=== PATIENT | female | born 1990 | race Hispanic/Latino ===

== ENCOUNTER 2018-04-09 06:32 | Inpatient (IN) | payer SELFPAY ==
[2018-04-09] MEDS ORDERED: BUTORPHANOL 1 MG/ML INJ IV PRN (07:40)
[2018-04-09] MEDS ORDERED: METHYLERGONOVINE 0.2MG/ML AMP IM PRN (07:40)
[2018-04-09] MEDS ORDERED: Ringers Lactate 1,000 ML IV PRN (07:40)
[2018-04-09] MEDS ORDERED: LIDOCAINE 1% MPF 30 ML VIAL ONE (07:59)
[2018-04-09] MEDS ORDERED: CARBOPROST TROME 250 MCG/ML IM ONE (07:59)
[2018-04-09 08:00] LABS: RPR Titer ND
[2018-04-09] MEDS ORDERED: Ringers Lactate 1,000 ML IV SCH (08:00)
[2018-04-09] MEDS ORDERED: OXYTOCIN/LR 20 UNIT/1,000 ML BAG IV ONE (08:00)
[2018-04-09] MEDS ORDERED: METHYLERGONOVINE 0.2MG/ML AMP IM ONE (08:00)
[2018-04-09 08:08] LABS: Absolute Lymphocytes (CBC) 2.7 K/uL (0.7-4.9); Absolute Monocytes 0.8 K/uL (0.1-1.3); Absolute Neutrophil 7.5 K/uL (1.8-8.0); Basophils % 0.3 % (0-1.3); Eosinophils % 1.4 % (0-4.4); Hematocrit 34.6 % (36.0-45.0); MCH 30.9 pg (27.0-35.0); MCV 91.3 fL (80-100); MPV 9.6 fL (7.6-11.3); Monocytes % 6.8 % (3.3-12.3)
[2018-04-09 08:46] LABS: Anisocytosis 1+; Blood Morphology Comment NOT SEEN (NOT SEEN); Platelet Estimate ADEQ; Polychromasia SLIGHT; Urine White Blood Cell Casts OK
[2018-04-09] MEDS ORDERED: DOCUSATE NA/SENNA CONC 1 TAB PO PRN (09:52)
[2018-04-09] MEDS ORDERED: ACETAMINOPHEN 500 MG TAB PO PRN (09:52)
[2018-04-09] MEDS ORDERED: ONDANSETRON 4 MG (ODT) TAB PO PRN (09:52)
[2018-04-09] MEDS ORDERED: BISACODYL 10 MG RECTAL SUPP RECT PRN (09:52)
[2018-04-09] MEDS ORDERED: METHYLERGONOVINE 0.2 MG TAB PO PRN (09:52)
[2018-04-09] MEDS ORDERED: Tdap (Diph,Pertuss(Acell),Tet Vac) 0.5 ML SYR IMVAC ONE (09:52)
--- NOTE | 2018-04-09 09:56 | P.OP ---
Date of Service: 04/09/18 Findings and Operative Technique Patient delivered a viable female in cephalic presentation over a midline episiotomy on 04/09/18 at 09:25 AM. There was a cord around the body x1. Once was delivered nose and mouth were suctioned with a suction bulb and cord eas clamped and cut and infant was placed on mother's abdomen for skin to skin bonding. Attention was then turned to the placenta which was delivered with gentle traction and was found to be intact. Episiotomoy was a second degree and was repaired with a 2.0 vicryl in usual fashion. EBL 300cc. 9/ 9. Weight 8 lb 4 oz. Stage 1 was 1 hour 30 min. Stage 2 was 1 hour 10 min.
[2018-04-09 11:00] VITALS: BMI 33.2
[2018-04-09] MEDS: IBUPROFEN 200 MG TAB PO PRN ×2 (12:30→20:30)
[2018-04-09] MEDS ORDERED: INFLUENZA VACCINE (for 3y+) 0.5 ML DOSE IMVAC ONE (13:00)
[2018-04-09] MEDS: Oxycodone HCl/Acetaminophen 1 TAB TAB PO PRN (17:49)
--- NOTE | 2018-04-09 19:52 | HP ---
Date of Admission: 04/09/2018 History Of Present Illness: The patient is a 27-year-old, 2, para 1-0-0-1, who presents at 4 0 weeks and 3 days in active labor. The patient presented to labor and delivery this morning, and wa s noted to be 3 cm at that time and then rapidly progressed to 7 cm. The patient was then admitted f or management of labor. The patient used to obtain care at my office. However, due to nonc ompliance with visits and orders regarding her labs and ultrasound, patient did not do any o f these tests therefore she was dismissed from the practice. The patient's last office visit was at 37 weeks, prior to this she was seen at 30 weeks. The patient's care is complicated by a ut erine size measuring smaller than dates and numerous visits to [place] possible Zika exposure. The daniella mcgraw had a group B strep swab done and was GBS negative. At one point, she also had severe anemia, currently her hemoglobin is 11. Past Medical History: Negative. Past Surgical History: No past surgeries. She has had 1 prior vaginal . Family History: Noncontributory. Social History: Denies tobacco, alcohol or drug use and she is here with her . Physical Examination: Vital Signs: Blood pressure 130/69, pulse is 78, respirations 18. The patient is afebrile. General: The patient in bed, in moderate pain. Head and Neck: Normocephalic, atraumatic. Neck: Supple. Respirations: Symmetric, non-labored breathing. Abdomen: Gravid. Smaller than dates. Bilateral Lower Extremities: No clubbing, cyanosis, or edema. Vaginal: Normal external female genitalia. Vagina is pink, moist, normal rugae. Cervical: 9-10 cm dilated, vertex presentation. Rupture of membranes performed. Clear fluid noted. heart rate monitoring: Baseline heart rate is 150, category 2 tracing. Crabtree contraction s occurring every 3-4 minutes. Assessment: Bailey is 27-year-old, 2, para 1-0-0-1 at 40 weeks and 3 days gestation, who pre sents in active labor, GBS negative, insufficient care. care complicated by anemia and a small for gestational age. Plan: Admit the patient. Begin Pitocin as needed. She has received IV pain medicine. Anticipate v aginal . MALIK Voice ID: [id number]
[2018-04-09 22:51] LABS: RPR (Rapid Plasma Reagin) NON-REACT (NON-REACT)
[2018-04-10] MEDS: Oxycodone HCl/Acetaminophen 1 TAB TAB PO PRN ×2 (03:35→12:03)
[2018-04-10] MEDS: IBUPROFEN 200 MG TAB PO PRN (05:55)
[2018-04-10 06:32] LABS: Absolute Lymphocytes (CBC) 3.1 K/uL (0.7-4.9); Absolute Monocytes 0.8 K/uL (0.1-1.3); Absolute Neutrophil 8.5 K/uL (1.8-8.0); Basophils % 0.1 % (0-1.3); Eosinophils % 1.3 % (0-4.4); Hematocrit 33.6 % (36.0-45.0); Lymphocytes % 24.3 % (15.3-44.8); MCV 90.9 fL (80-100); MPV 9.5 fL (7.6-11.3); Monocytes % 6.8 % (3.3-12.3); RBC Red Blood Cell Count 3.69 M/uL (3.86-4.86)
[2018-04-10 07:00] LABS: Anisocytosis 1+; Blood Morphology Comment NOTED (NOT SEEN); Platelet Estimate ADEQ; Polychromasia 1+; Urine White Blood Cell Casts OK
[2018-04-10 08:12] VITALS: BP 117/65; TEMP 97.5
--- NOTE | 2018-04-10 09:10 | P.DS ---
Admission Date: 04/09/18 Discharge Date: 04/10/18 Disposition: ROUTINE DISCHARGE Discharge Condition: GOOD Brief History of Present Illness: see h/p Hospital Course: patient did well . Routine care. Bonding well with baby. Instructed to follow up in office. Vital Signs/Physical Exam: Temp Pulse Resp BP Pulse Ox 97.5 F 65 16 117/65 04/10/18 08:11 04/10/18 08:11 04/10/18 08:11 04/10/18 08:11 General: Alert, In no apparent distress HEENT: Atraumatic Neck: Supple Respiratory: Normal air movement Cardiovascular: No edema External genitalia: No edema, No lesions Laboratory Data at Discharge: WBC 12.6 K/uL (4.3-10.9) H 04/10/18 06:16 Hgb 11.5 g/dL (12.0-15.0) L 04/10/18 06:16 Hct 33.6 % (36.0-45.0) L 04/10/18 06:16 Plt Count 155 K/uL (152-406) 04/10/18 06:16 Home Medications: Pnv #14/Ferrous Fum/Folic Acid [Nutrinate Tablet Chew] 1 tab PO DAILY 04/09/18 Diet: Regular Activity: No lifting more than 10 lbs Followup: Alcon Bro DO [ACTIVE - CAN ADMIT] - (Follow up care with Dr. Bro in 6 weeks for post visit. [phone])
[2018-04-10] MEDS ORDERED: Tdap (Diph,Pertuss(Acell),Tet Vac) 0.5 ML SYR IMVAC ONE (11:35)
[2018-04-10] MEDS ORDERED: INFLUENZA VACCINE (for 3y+) 0.5 ML DOSE IMVAC ONE (11:35)
[2018-04-12 02:06] LABS: HBsAG Nonreactive (Nonreactive)
== END 2018-04-10 12:30 | disposition home or self-care (01) | DRG 807 ==
LOC: L&D 06:32 → 2ND-WC 07:24
PROVIDERS: ADMIT Student in an Organized Health Care Education/Training Program; ATTEND Student in an Organized Health Care Education/Training Program
PROC: 10E0XZZ Delivery of Products of Conception, External Approach (ICD-10-PCS; principal; 2018-04-09)
PROC: 0KQM0ZZ Repair Perineum Muscle, Open Approach (ICD-10-PCS; 2018-04-09)
PROC: 3E033VJ Introduction of Other Hormone into Peripheral Vein, Percutaneous Approach (ICD-10-PCS; 2018-04-09)
PROC: 10907ZC Drainage of Amniotic Fluid, Therapeutic from Products of Conception, Via Natural or Artificial Opening (ICD-10-PCS; 2018-04-09)
PROC: 0W8NXZZ Division of Female Perineum, External Approach (ICD-10-PCS; 2018-04-09)
PROC: 4A1HXCZ Monitoring of Products of Conception, Cardiac Rate, External Approach (ICD-10-PCS; 2018-04-09)
DX: O99.02 Anemia complicating childbirth (principal); Z37.0 Single live birth; D64.9 Anemia, unspecified; O36.5930 Maternal care for other known or suspected poor fetal growth, third trimester, not applicable or unspecified; O70.1 Second degree perineal laceration during delivery; O69.82X0 Labor and delivery complicated by other cord entanglement, without compression, not applicable or unspecified; Z3A.40 40 weeks gestation of pregnancy
CPT/HCPCS: 36415; 85025; 86592; 86850; 86900; 86901; 87340; 88307; 90715; J2210; J2590; Q2035